=== PATIENT | male | born 1950 | race Caucasian/White ===

== ENCOUNTER → 2018-09-28 | Outpatient (CLI) | payer MEDICARE ==
[~2018-09-28] MED LIST: AMIO200T42 PO; APIX5TAB PO; FURO-92 PO; LEVO50TA5 PO; MULT-658 PO; TRAZ50TA66 PO
== END | disposition home or self-care (01) ==
LOC: RAD 07:19
PROVIDERS: ATTEND Otolaryngology
DX: J32.2 Chronic ethmoidal sinusitis (principal); J32.0 Chronic maxillary sinusitis; J32.3 Chronic sphenoidal sinusitis; J34.2 Deviated nasal septum
CPT/HCPCS: 70486

== ENCOUNTER 2018-09-29 08:11 | Day surgery (SDC) | payer MEDICARE ==
[~2018-09-29] VITALS: Ht 190.5 cm; Wt 92.4 kg
[~2018-09-29 08:11] MED LIST changes: -AMIO200T42 PO; -APIX5TAB PO; +BACITRACIN OINT 500U/GM, 15 GM ONE; +EPINEPHRINE TOPICAL SOLN 1 MG/ML, 30ML ONE; +FLUORESCEIN SODIUM 500 MG/5 ML ONE; -FURO-92 PO; -LEVO50TA5 PO; +LIDOCAINE 1%-EPI 1:100K, 20ML ONE; -MULT-658 PO; +OXYMETAZOLINE NASAL SPRAY 0.05%, 15ML ONE; -TRAZ50TA66 PO
[2018-09-29] MEDS ORDERED: FENTANYL PF 250 MCG/5ML ONE (08:50)
[2018-09-29 09:06] VITALS: BP 114/64
[2018-09-29] MEDS ORDERED: LACTATED RINGERS 1,000 ML IV SCH (09:09)
[2018-09-29] MEDS ORDERED: FURO-92 PO (09:19)
[2018-09-29] MEDS ORDERED: AMIO200T42 PO (09:19)
[2018-09-29] MEDS ORDERED: MULT-658 PO (09:19)
[2018-09-29] MEDS ORDERED: TRAZ50TA66 PO (09:19)
[2018-09-29] MEDS ORDERED: APIX5TAB PO (09:19)
[2018-09-29] MEDS ORDERED: LEVO50TA5 PO (09:19)
[2018-09-29] MEDS ORDERED: OXYcodone 5 MG/5 ML ORAL.SOL UDC PO PRN (09:30)
[2018-09-29] MEDS ORDERED: hydrALAzine 20 MG/ML, 1ML IV PRN (09:30)
[2018-09-29] MEDS ORDERED: PROMETHAZINE 25 MG/ML, 1ML IV PRN (09:30)
[2018-09-29] MEDS ORDERED: LABETALOL 5MG/ML, 20ML IV PRN (09:30)
[2018-09-29] MEDS ORDERED: HALOPERIDOL 5 MG/ML IV PRN (09:30)
[2018-09-29] MEDS ORDERED: METOPROLOL 1 MG/ML, 5ML IV PRN (09:30)
[2018-09-29] MEDS ORDERED: DIPHENHYDRAMINE 50 MG/ML, 1ML IVPush PRN (09:30)
[2018-09-29] MEDS ORDERED: HYDROmorphone 2 MG/ML, 1ML IVPush PRN (09:30)
[2018-09-29] MEDS ORDERED: MEPERIDINE/PF 25MG/0.5ML IVPush PRN (09:30)
[2018-09-29] MEDS ORDERED: PROCHLORPERAZINE 5 MG/ML, 2ML IV PRN (09:30)
[2018-09-29] MEDS ORDERED: PHENYLEPHRINE 10 MG/ML ONE (09:46)
[2018-09-29] MEDS ORDERED: THROMBIN 20,000 UNIT VIAL TP ONE (11:17)
[2018-09-29] MEDS ORDERED: GLYCOPYRROLATE 0.2MG/1ML, 5ML ONE (11:28)
[2018-09-29] MEDS ORDERED: SUCCINYLCHOLINE 20 MG/ML, 10ML ONE (11:28)
[2018-09-29] MEDS ORDERED: CEFAZOLIN 1,000 MG ONE (11:28)
[2018-09-29] MEDS ORDERED: ROCURONIUM 10MG/ML,5ML ONE (11:28)
[2018-09-29] MEDS ORDERED: ONDANSETRON 2MG/ML, 2ML ONE (11:28)
[2018-09-29] MEDS ORDERED: PROPOFOL 10 MG/ML, 20ML ONE (11:28)
[2018-09-29] MEDS ORDERED: NEOSTIGMINE 1 MG/ML, 10ML ONE (11:28)
[2018-09-29] MEDS ORDERED: DEXAMETHASONE 4 MG/ML, 1ML ONE (11:28)
[2018-09-29] MEDS ORDERED: OXYcodone 5 MG/5 ML ORAL.SOL UDC ONE (12:05)
[2018-09-29] MEDS ORDERED: FENTANYL PF 100 MCG/2ML ONE (12:15)
[2018-09-29] MEDS: FENTANYL PF 100 MCG/2ML IV PRN ×2 (12:16→12:31)
[2018-09-29] MEDS ORDERED: HYDROmorphone 1 MG/ML, 1ML INJ ONE (12:59)
== END 2018-09-29 15:55 | disposition home or self-care (01) ==
LOC: OUT 08:11
PROVIDERS: ATTEND Otolaryngology
DX: J34.2 Deviated nasal septum (principal); J32.0 Chronic maxillary sinusitis; J32.2 Chronic ethmoidal sinusitis; R04.0 Epistaxis; G47.33 Obstructive sleep apnea (adult) (pediatric); E03.9 Hypothyroidism, unspecified; Z85.89 Personal history of malignant neoplasm of other organs and systems; Z72.89 Other problems related to lifestyle; Z95.0 Presence of cardiac pacemaker
CPT/HCPCS: 30520; 30920; 31241; 31254; 31256; 88304; 88311; 93005; J0330; J0690; J1100; J1170; J2370; J2405; J2704; J2710; J3010; J3490; J7120